=== PATIENT | female | born 1975 | race Two or more races ===

== ENCOUNTER 2016-09-29 23:00 | Emergency (ER) | payer MEDICAID ==
[~2016-09-29] VITALS: Ht 167.6 cm; Wt 68.0 kg
[2016-09-29 23:11] VITALS: BP 141/89
[2016-09-30] MEDS ORDERED: cefTRIAXone SOD 1,000 MG VL IM ONE (02:30)
[2016-09-30] MEDS ORDERED: ACETAMINOPHEN/CODEINE#3 (300/30mg) TAB PO ONE (02:30)
== END 2016-09-30 02:41 | disposition home or self-care (01) ==
LOC: ER 23:03
DX: K61.2 Anorectal abscess (principal)
CPT/HCPCS: 96372; 99283; J0696

== ENCOUNTER → 2024-03-06 | Outpatient (CLI) | payer MEDICAID ==
[~2024-03-06] MED LIST: ALBUTEROL SULF 2.5 MG/0.5ML(0.5%) NEB SOLN ONE
== END | disposition home or self-care (01) ==
LOC: RT 10:38
PROVIDERS: ATTEND Internal Medicine Pulmonary Disease
DX: R06.02 Shortness of breath (principal); R06.00 Dyspnea, unspecified; F17.210 Nicotine dependence, cigarettes, uncomplicated
CPT/HCPCS: 94060; 94727; 94729